=== PATIENT | female | born 1990 | race African-American/Black ===

== ENCOUNTER 2016-03-10 15:37 | Emergency (ER) | payer OTHER ==
[~2016-03-10] VITALS: Ht 165.1 cm; Wt 104.3 kg
[~2016-03-10 15:37] MED LIST: CYCLOBENZAPRINE5 MG PO; DICLEGIS DR 101 EACH; EXCEDRIN MIGRAINE; KEFLEX500 MG PO; NOHOMEMEDICATIONS; NORCO 5-325 TA1 EACH PO; ONDANSETRON HCL4 M2 PO; PHENERGAN 25 MG25 M1 PO
[2016-03-10] MEDS ORDERED: REGLAN 10 MG TA10 MG PO (16:57)
[2016-03-10] MEDS ORDERED: DICLEGIS DR 101 EACH PO (16:57)
[2016-03-10 17:08] VITALS: BP 126/78
== END 2016-03-10 17:10 | disposition home or self-care (01) ==
LOC: ER 15:37
DX: O21.0 Mild hyperemesis gravidarum (principal); O26.891 Other specified pregnancy related conditions, first trimester; R51 Headache; Z3A.09 9 weeks gestation of pregnancy